=== PATIENT | male | born 2000 | race Caucasian/White ===

== ENCOUNTER 2020-07-22 02:26 | Emergency (ER) | payer OTHER ==
[~2020-07-22] VITALS: Ht 182.9 cm; Wt 70.3 kg
[2020-07-22] MEDS ORDERED: Prednisone20 MG PO (02:55)
== END 2020-07-22 03:02 | disposition home or self-care (01) ==
LOC: ER 02:26
DX: T78.40XA Allergy, unspecified, initial encounter (principal); L50.0 Allergic urticaria; Z79.52 Long term (current) use of systemic steroids
CPT/HCPCS: 99282; J7512

== ENCOUNTER 2021-11-06 08:27 | Day surgery (SDC) | payer OTHER ==
[~2021-11-06] VITALS: Ht 185.4 cm; Wt 68.8 kg
[~2021-11-06 08:27] MED LIST: Prednisone20 MG PO
--- NOTE | 2021-11-06 09:17 | NUR ---
11/06/21 0917 Kannan Desir CALL LIGHT WITHIN REACH
== END 2021-11-06 12:50 | disposition home or self-care (01) ==
LOC: ORSCSDS 08:27
DX: S83.511A Sprain of anterior cruciate ligament of right knee, initial encounter (principal); M23.200 Derangement of unspecified lateral meniscus due to old tear or injury, right knee
CPT/HCPCS: C1713; C1776; J0171; J0690; J1100; J1885; J2250; J2405; J2704; J3010; J7120